=== PATIENT | male | born 1985 | race Caucasian/White ===

== ENCOUNTER 2020-07-12 17:39 | Emergency (ER) | payer BC ==
[~2020-07-12] VITALS: Ht 188 cm; Wt 84.8 kg
[2020-07-12 18:16] LABS: ABSOLUTE BASOPHILS 0.1 thou/uL (0.0-0.2); ABSOLUTE EOSINOPHILS 0.1 thou/uL (0.0-0.7); ABSOLUTE LYMPHOCYTES 2.7 thou/uL (0.8-5.3); ABSOLUTE MONOCYTES 0.7 thou/uL (0.0-1.2); ABSOLUTE NEUTROPHILS 5.4 thou/uL (1.6-8.1); BASOPHILS 1.5 %; EOSINOPHILS 1.1 %; HEMATOCRIT 41.4 % (42.0-52.0); HEMOGLOBIN 14.3 gm/dL (14.0-18.0); MCH 29.7 pg (26.0-34.0); MCHC 34.5 g/dL (28.0-37.0); MCV 86.2 fL (80.0-100.0); MONOCYTES 7.9 %; MPV 7.2 fl. (7.2-11.1); NUCLEATED RBCS 0 /100WBC; PLATELET COUNT* 377 thou/uL (150-400); POLYS 59.5 %; RDW-CV 13.2 % (10.5-14.5); WBC 9.2 thou/uL (4.0-11.0)
[2020-07-12 18:20] LABS: URINE BILIRUBIN 1+ (Negative); URINE BLOOD NEGATIVE (Negative); URINE CLARITY CLEAR; URINE COLOR YELLOW; URINE GLUCOSE-RANDOM NEGATIVE (Negative); URINE KETONES NEGATIVE (Negative); URINE LEUKOCYTES-REFLEX NEGATIVE (Negative); URINE NITRITE-REFLEX NEGATIVE (Negative); URINE PROTEIN TRACE (Negative); URINE SPECIFIC GRAVITY >= 1.030 (1.005-1.030); URINE UROBILINOGEN 0.2 E.U./dl (0.2-1.0)
[2020-07-12 18:21] LABS: ICTOTEST (BILI CONFIRMATORY) Positive (Negative)
[2020-07-12 18:30] LABS: ALBUMIN 4.4 g/dL (3.4-5.0); CALCIUM 9.6 mg/dL (8.5-10.1); CREATININE 0.9 mg/dL (0.6-1.3); TOTAL BILIRUBIN 0.7 mg/dL (<0.1-1.0); TOTAL PROTEIN 7.7 g/dL (6.4-8.2)
[2020-07-12 18:38] LABS: POTASSIUM 2.7 mmol/L (3.5-5.1)
[2020-07-12] MEDS ORDERED: ZOFRAN ODT4 MG PO (21:45)
[2020-07-12] MEDS ORDERED: BENTYL 10 MG CA10 M1 PO (21:45)
[2020-07-12] MEDS ORDERED: CARAFATE1 GM/10 ML PO (21:45)
[2020-07-12] MEDS ORDERED: NORCO5 PO (21:46)
[2020-07-12 22:28] VITALS: BP 132/65
--- NOTE | 2020-07-13 15:30 | EKG ---
[place] [address] ELECTROCARDIOGRAM REPORT Name: MUNAMILAGRO Malcolm Room: [facility]#: [id number] Admission: 07/12/20 Attend Phys: Discharge: 07/12/20 Date of : 83 Date of Service: 07/12/201810 Report #: [id number] THIS REPORT FOR: //name// [facility] ED Test Date: 2020-07-12 Test Time: 18:11:54 Pat Name: MILAGRO TORO Department: Room: Gender: Internet Developer: [facility] : 1985 Requested By: Karol Colin Order Number: [id number] MD: Mc Moreno Measurements Intervals [place] Rate: 68 P: 67 OR: 141 QRS: 2 QRSD: 98 T: 47 QT: 400 QTc: 426 Interpretive Statements Sinus rhythm Baseline wander in lead(s) II,III,aVL,aVF No previous ECG available for comparison Electronically Signed On 07-13-2020 15:30:36 [employer]Y E[employer] REPAIRER by Mc Moreno [email or web address] <ELECTRONICALLY SIGNED> By: Mc Moreno MD, [facility] 07/13/20 1530 181 10 Mc Moreno MD, [facility] /EPI
== END 2020-07-12 22:29 | disposition home or self-care (01) ==
LOC: M.ERS 17:39
PROVIDERS: Nurse Practitioner Family
DX: K52.9 Noninfective gastroenteritis and colitis, unspecified (principal); E87.6 Hypokalemia; K44.9 Diaphragmatic hernia without obstruction or gangrene; Z88.6 Allergy status to analgesic agent

== ENCOUNTER 2020-11-07 21:39 | Emergency (ER) | payer BC ==
[~2020-11-07] VITALS: Ht 185.4 cm; Wt 90.7 kg
[~2020-11-07 21:39] MED LIST: BENTYL 10 MG CA10 M1 PO; CARAFATE1 GM/10 ML PO; NORCO5 PO; ZOFRAN ODT4 MG PO
[2020-11-07 21:56] LABS: URINE BILIRUBIN NEGATIVE (Negative); URINE BLOOD NEGATIVE (Negative); URINE CLARITY CLEAR; URINE COLOR YELLOW; URINE GLUCOSE-RANDOM NEGATIVE (Negative); URINE KETONES TRACE (Negative); URINE LEUKOCYTES-REFLEX NEGATIVE (Negative); URINE NITRITE-REFLEX NEGATIVE (Negative); URINE PROTEIN 1+ (Negative); URINE SPECIFIC GRAVITY >= 1.030 (1.005-1.030); URINE UROBILINOGEN 0.2 E.U./dl (0.2-1.0)
[2020-11-07 22:10] LABS: ABSOLUTE EOSINOPHILS 0.2 thou/uL (0.0-0.7); ABSOLUTE LYMPHOCYTES 3.3 thou/uL (0.8-5.3); ABSOLUTE MONOCYTES 0.6 thou/uL (0.0-1.2); ABSOLUTE NEUTROPHILS 3.8 thou/uL (1.6-8.1); BASOPHILS 0.6 %; EOSINOPHILS 2.4 %; HEMATOCRIT 38.8 % (42.0-52.0); HEMOGLOBIN 13.3 gm/dL (14.0-18.0); LYMPHOCYTES 41.4 %; MCH 30.4 pg (26.0-34.0); MCHC 34.4 g/dL (28.0-37.0); MCV 88.6 fL (80.0-100.0); MONOCYTES 7.5 %; MPV 7.3 fl. (7.2-11.1); NUCLEATED RBCS 0 /100WBC; PLATELET COUNT* 366 thou/uL (150-400); POLYS 48.1 %; RBC 4.37 mil/uL (4.50-6.00); RDW-CV 13.8 % (10.5-14.5)
[2020-11-07 22:18] LABS: CALCIUM 9.3 mg/dL (8.5-10.1); CREATININE 0.8 mg/dL (0.6-1.3)
[2020-11-07 22:20] LABS: POTASSIUM 2.7 mmol/L (3.5-5.1)
[2020-11-08] MEDS ORDERED: CARAFATE 1 GM TA1 GM PO (00:04)
[2020-11-08] MEDS ORDERED: KLOR-CON 10 ER10 MEQ PO (00:04)
[2020-11-08 01:23] VITALS: BP 144/86
--- NOTE | 2020-11-08 11:09 | EKG ---
[place] [address] ELECTROCARDIOGRAM REPORT Name: MILAGRO TORO Room: [facility]#: [id number] Admission: 11/07/20 Attend Phys: Discharge: 11/08/20 Date of : 83 Date of Service: 11/07/202236 Report #: [id number] THIS REPORT FOR: //name// [facility] ED Test Date: 2020-11-07 Test Time: 22:37:30 Pat Name: MILAGRO TORO Department: Room: Gender: Head Of Design: : 1985 Requested By: You Linares Order Number: [id number] MD: Mc Moreno Measurements Intervals [place] Rate: 59 P: 26 VT: 142 QRS: 23 QRSD: 101 T: 33 QT: 427 QTc: 423 Interpretive Statements Sinus rhythm Compared to ECG 07/12/2020 18:11:54 No significant changes Electronically Signed On 11-08-2020 11:09:22 CDT by Mc Moreno [email or web address] <ELECTRONICALLY SIGNED> By: Mc Moreno MD, [facility] 11/08/20 1109 36 36 Mc Moreno MD, [facility] /EPI
== END 2020-11-08 01:24 | disposition home or self-care (01) ==
LOC: M.ERS 21:39
PROVIDERS: Nurse Practitioner Psychiatric/Mental Health
DX: R10.13 Epigastric pain (principal); R11.2 Nausea with vomiting, unspecified; Z88.2 Allergy status to sulfonamides; Z88.6 Allergy status to analgesic agent